=== PATIENT | male | born 1980 | race Two or more races ===

== ENCOUNTER 2025-01-23 12:00 | Emergency (ER) | payer MEDICAID, SELFPAY ==
[2025-01-23 12:13] VITALS: BP 148/100; PULSE 80; RESP 19; TEMP 36.9; O2SAT 96; BMI 29.3
--- NOTE | 2025-01-23 12:25 | XR_ITS ---
EXAMINATION: XR elbow comp LT min 3V, XR wrist comp LT min 3V ORDERING PROVIDER: Tim Oscar NP HISTORY: pain after 6 ft fall off ladder TECHNIQUE: 6 radiographs of the left elbow and wrist were obtained. COMPARISON: None. FINDINGS: Mild apex dorsal distal ulnar metaphyseal fracture with surrounding soft tissue swelling. No acute fracture or dislocation of the elbow. No elbow joint effusion. IMPRESSION: Distal ulnar metaphyseal fracture.
--- NOTE | 2025-01-23 12:25 | XR_ITS ---
Examination: CT brain head without contrast. 2-D sagittal coronal reconstructions Date and time of exam:January 23, 2025 1446 hrs. Indications: Patient fell today with injury to the head, head pain CTDI: vol (mGy):54.3 DLP: (mGycm):1973 Technique: Multiple CT axial sections of the brain have been obtained, 5 mm slice thickness. Contrast has not been administered. 2-D sagittal, coronal reconstructions have been obtained Low dose protocols were performed. One or more of the following dose reduction techniques were used; automated exposure control, adjustment of the mA and/or KV according to patient size, use of iterative reconstruction technique. Findings: No significant ventricular enlargement. Intra-axial or extra-axial hemorrhage density is not seen. No mass effect or midline shift Basal cisterns are not remarkable. Fourth ventricle is midline. Cranial vault intact. Impression: Negative for acute hemorrhage, mass effect or midline shift
--- NOTE | 2025-01-23 12:25 | XR_ITS ---
EXAMINATION: CT cervical spine wo con ORDERING PROVIDER: Tim Oscar NP HISTORY: fall off ladder TECHNIQUE: CT scanner was used in the volumetric, helical non-contrast acquisition of the cervical spine with 2-D and 3-D reformats created on a separate workstation and submitted for interpretation. Institutional dose reducing protocols were utilized. RADIATION DOSE: DLP 236 mGy-cm COMPARISON: None. FINDINGS: No acute cervical spine fracture or dislocation. There is straightening with mild reversal normal cervical lordotic curvature centered at C6. Mild degenerative disc most pronounced at C5-C6 and C7-T1. Small disc osteophytes. This amount of air posterior to C6, possibly from related degenerative disc disease. Mild uncovertebral hypertrophy most pronounced at C5-C6 and C6-C7. Basilar cervical spine facet arthrosis No abnormal thickening of the prevertebral soft tissues. There is a partially calcified 7 mm nodule in the right lung apex. This probably represents a calcifying granuloma, sequela of old granulomatous disease. There is an 8 mm focus of air posterior lateral right to the trachea, which may represent a small diverticulum. IMPRESSION: 1. No acute fracture or dislocation of the cervical spine. 2. Straightening of the normal cervical lordotic curvature with mild reversal which may be due to positioning or muscle spasm.
--- NOTE | 2025-01-23 12:29 | XR_ITS ---
EXAMINATION: XR chest 1V ORDERING PROVIDER: Tim Oscar NP HISTORY: fall off ladder TECHNIQUE: Single portable AP radiograph of the chest. COMPARISON: None. FINDINGS: Lines and Tubes: None. Lungs: No consolidation. Probable 3 mm left upper lobe calcified granuloma, likely sequela of old granulomatous disease. Pleura: No pneumothorax or pleural effusion. Right costophrenic angle clipped. Cardiomediastinal Silhouette: Normal. Soft Tissues/Bones: Normal. IMPRESSION: No acute pulmonary findings.
--- NOTE | 2025-01-23 12:29 | PD.EDADULT ---
ED General RME/HPI General Chief complaint: Fall Stated complaint: FELL OFF STEP LADDER, THINKS HE FX'D L) ARM Time Seen by Provider: 01/23/25 12:24 Arrival date/time: 01/23/25 12:00 CC: Left wrist left elbow pain HPI onset after falling off a ladder approximately 30 minutes ago patient denies LOC or LOC is not on any blood thinners has no allergies localized pain is 8 on a 10 scale. Patient denies numbness or tingling in his hand. Related Data Previous Rx's ?Medication ?Instructions ?Recorded naproxen 500 mg tablet (Naprosyn) 500 mg PO BID #30 tabs 12/20/18 tramadol 50 mg tablet (Ultram) 50 mg PO QID #20 tabs 12/20/18 meloxicam 7.5 mg tablet 7.5 mg PO QDAY #14 tabs 01/23/25 Allergies Allergy/AdvReac Type Severity Reaction Status Date / Time No Known Allergies Allergy Verified 01/23/25 12:06 Review of Systems Review of Systems Narrative Review of Systems: GEN: No fever, no chills, no weight loss EYES: No discharge, no visual changes, no pain HEENT: No ear pain, no congestion, no sore throat PULM: No shortness of breath, no cough, no congestion CV: No chest pain, no dyspnea on exertion, no palpitations GI: No nausea, no vomiting, no diarrhea, no pain, no constipation : No frequency, no urgency, no dysuria MUSC/SKEL: Left upper extremity elbow and wrist pain SKIN: No rash PSYCH: No hallucinations, no depression HEME/LYMPH: No easy bleeding or bruising tendencies NEURO: No weakness, no headache Past Medical History Social History SMOKING STATUS: Current some day smoker ED Exam Narrative Physical exam: [General: In moderate discomfort but not in any acute distress Head normocephalic, no step-offs hematoma induration ulceration or abrasions HEENT: Face: No raccoon's eyes Thacker sign facial asymmetry bogginess eyes pupils are PERRLA EOMs are intact mouth pink moist membranes uvula is midline swallow symmetrical phonation is normal no step-off in the upper or lower mandible with palpation. Nose: No rhinorrhea or otorrhea no epistaxis. All other subsystems of HEENT are within acceptable limits Neck is supple nontender nontender to palpation, full range of motion rotation flexion extension. No LAD no edema no JVD Chest equal chest rise nontender to palpation Respiratory: Clear to auscultation no wheezes crackles or rubs CV: Rate rhythm is regular no murmurs rubs or clicks Abdomen is soft nontender no masses positive bowel sounds all 4 quadrants Back: No CVA tenderness no spinous process tenderness from cervical spine thoracic and lumbar spine Skin: Intact no petechiae rash induration ulceration or crepitus Extremities: Moving all extremity against resistance cap refill less than 2 seconds neurosensory intact Neuro: Awake alert oriented x3 Glascow coma 15 no focal deficits] Course Quality Measures none Orders Category Date Time Status Saline [Insert IV] NOW Care 01/23/25 12:25 Completed Splint / Immobilizer STAT Care 01/23/25 13:[address] cervical spine wo con Stat Exams 01/23/25 12:[address] head/brain wo con Stat Exams 01/23/25 12:25 Completed XR chest 1V Stat Exams 01/23/25 12:29 Completed XR elbow comp LT min 3V Stat Exams 01/23/25 12:25 Completed XR wrist comp LT min 3V Stat Exams 01/23/25 12:25 Completed Morphine Inj Med 01/23/25 12:25 Discontinued 4 mg IVP X1 ONE Ondansetron Inj [Zofran Inj] Med 01/23/25 12:25 Discontinued 4 mg IV X1 ONE Vital Signs Vital signs: Vital Signs Temperature 98.4 F 01/23/25 12:13 Pulse Rate 80 01/23/25 12:13 Respiratory Rate 19 01/23/25 12:13 Blood Pressure 148/100 H 01/23/25 12:13 Pulse Oximetry (%) 96 01/23/25 12:13 Oxygen Delivery Method Room Air 01/23/25 12:13 [facility] Patient data External records reviewed:: [facility] previous records Clinical information provided by:: patient Social determinants that could affect healthcare access:: none Patient has the following chronic illnesses:: None How is presenting disease/condition affected by chronic disease/condition?: uneffected by Evaluation data The following diagnostics were reviewed and interpreted by me:: lab results and radiology exam(s) Lab and/or radiology exams considered but not ordered:: CT head and C-spine is interpreted by me read by radiology as negative for any acute finding X-ray of the elbow is negative x-ray of the wrist is positive for distal ulnar fracture. Interpretation Summary: Reassessment of the patient at 1600 the patient is awake alert oriented no other focal deficits as and no decline in neurologic status throughout his visit the emergency room chest x-ray is negative for any acute finding this time patient be discharged home with a wrist fracture. Medications Medications considered but not ordered:: None Medication administrations:: Medication Administration History Discontinued Medications Morphine Sulfate (Morphine Sulf Inj 10 Mg/Ml Vial) 4 mg IVP X1 ONE Stop: 01/23/25 12:26 Last Admin: 01/23/25 13:01 Dose: 4 mg Documented By: GERALDO Ondansetron HCl (Ondansetron Inj 2 Mg/Ml Inj 2 Ml) 4 mg IV X1 ONE; Protocol Stop: 01/23/25 12:26 Last Admin: 01/23/25 12:59 Dose: 4 mg Documented By: GERALDO None Consultations Consultation(s) initiated? (list below): No Diagnosis Differential Diagnosis ED Complaint MDM: Closed head injury neck fracture wrist fracture elbow fracture Most likely diagnosis given after review of the tests above:: Fall wrist fracture Admission Indicated Admission indicated?: not indicated Explain why admission is indicated or not indicated:: Stable for outpatient follow-up Admission Request Was there a request for admission?: No Disposition Plan Disposition Plan: Discharge Discharge Attestation Discharge Attestation: The patient and all family members were given an opportunity to ask questions and understood the discharge instructions. Discharge instructions specifically effects, indications for sooner follow up or return to the emergency department, and the expected course of current diagnosis. Patient condition: Stable Medical Decision Making Differential Diagnosis Differential Diagnosis: Closed head injury neck fracture wrist fracture elbow fracture Discharge Plan Plan Patient Disposition: HOME (Self Care) Patient condition on transfer: Stable Prescriptions/Referrals Prescriptions/Med Rec: New meloxicam 7.5 mg tablet 7.5 mg PO QDAY Qty: 14 0RF No Action tramadol [Ultram] 50 mg tablet 50 mg PO QID Qty: 20 0RF naproxen [Naprosyn] 500 mg tablet 500 mg PO BID Qty: 30 0RF Referrals: Emigdio Lane MD [Primary Care Provider] - In 1 week Kal Aaron MD [Physician] - In 1 week Problem List Clinical Impression: Fracture, ulna, distal, Fall Patient/Caregiver Discharge Instructions Education Materials: ED Forearm Fx Wo Redu Additional Instructions: Keep the wrist in the splint until replaced by a cast, if the splint is removed or gets wet return to the emergency room for reevaluation. Take the medication for temporary pain relief. Print Language: Honduran Stand Alone Forms: [employer] Award Info., Work/School Release, Patient Portal Info Letter PA/COMPUTER NUMERIC CONTROL SETTER Supervising Physician PA/COMPUTER NUMERIC CONTROL SETTER Supervising Physician: Tim Oscar ENP
[2025-01-23 12:54] VITALS: BP 140/90; PULSE 67; RESP 19; TEMP 37; O2SAT 96
[2025-01-23] MEDS: ONDANSETRON INJ 2 MG/ML INJ 2 ML 4 MG IV (12:59)
[2025-01-23] MEDS: MORPHINE SULF INJ 10 MG/ML VIAL 4 MG IVP (13:01)
[2025-01-23 14:18] VITALS: BP 161/100; PULSE 65; RESP 17; TEMP 36.7; O2SAT 95
[2025-01-23 15:57] VITALS: BP 149/76; PULSE 81; RESP 16; TEMP 37.2; O2SAT 94
== END 2025-01-23 16:11 | disposition home or self-care (01) ==
PROVIDERS: Emergency Provider Emergency Medicine; PCP Family Medicine
DX: S52.602A Unspecified fracture of lower end of left ulna, initial encounter for closed fracture (principal); W11.XXXA Fall on and from ladder, initial encounter
CPT/HCPCS: 29126; 70450; 71045; 72125; 73080; 73110; 96374; 96375; 99284; A4565; J2270; J2405

== ENCOUNTER → 2025-02-08 | Outpatient (CLI) | payer MEDICAID, SELFPAY ==
--- NOTE | 2025-02-08 14:48 | XR_ITS ---
Examination: Wrist, left 3 views Technique: Wrist AP, oblique, lateral 3 views Date and time of exam: February 08, 2025 1408 hours Comparison January 23, 2025 INDICATIONS: Ulnar fracture January 23, 2025 FINDINGS: Partial healing fracture distal ulna with stable and satisfactory alignment IMPRESSION: Partial healing fracture distal ulna with stable and satisfactory alignment
--- NOTE | 2025-02-08 14:48 | XR_ITS ---
Examination: Hand, left 3 views Technique: Hand AP, oblique, lateral 3 views Date and time of exam: February 08, 2025 1451 hours INDICATIONS: Acute ulnar fracture January 23, 2025 FINDINGS: Partial healing fracture distal ulna with stable and satisfactory alignment IMPRESSION: Partial healing fracture distal ulna with stable and satisfactory alignment
== END | disposition home or self-care (01) ==
LOC: CDIM 14:31
PROVIDERS: PCP Nurse Practitioner Gerontology; Referring Provider Nurse Practitioner Gerontology; Visit Provider Nurse Practitioner Gerontology
DX: S52.602A Unspecified fracture of lower end of left ulna, initial encounter for closed fracture (principal); X58.XXXA Exposure to other specified factors, initial encounter
CPT/HCPCS: 73110; 73130

== ENCOUNTER → 2025-03-13 | Outpatient (CLI) | payer MEDICAID, SELFPAY ==
--- NOTE | 2025-03-13 09:00 | XR_ITS ---
Examination: CT left hand, without contrast. 2-D sagittal reconstructions. 2-D coronal reconstructions. 3-D reconstructions. Date and time of exam:March 13, 2025 0916 hours INDICATIONS: Patient fell from a ladder January 23, 2025 with injury to the hand, hand pain CTDI: vol (mGy):4.61 DLP: (mGycm):131 Technique: Multiple 1.25 mm axial sections of the left hand without intravenous contrast have been obtained. 2-D sagittal and coronal reconstructions have been obtained. 3-D reconstructions have been obtained. Low dose protocols were performed. One or more of the following dose reduction techniques were used; automated exposure control, adjustment of the mA and/or KV according to patient size, use of iterative reconstruction technique. Findings: Partial healing fracture distal ulna with satisfactory alignment Distal radius carpal bones intact Metacarpals digits intact No foreign bodies IMPRESSION: Partial healing fracture distal ulna with satisfactory alignment
--- NOTE | 2025-03-13 09:30 | XR_ITS ---
Examination: CT left wrist, without contrast. 2-D sagittal reconstructions. 2-D coronal reconstructions. 3-D reconstructions. Date and time of exam:March 13, 2025 0916 hours INDICATIONS: Patient fell from a ladder January 23, 2025 with injury to the wrist, wrist pain CTDI: vol (mGy):4.95 DLP: (mGycm):110 Technique: Multiple 1.25 mm axial sections of the left wrist without intravenous contrast have been obtained. 2-D sagittal and coronal reconstructions have been obtained. 3-D reconstructions have been obtained. Low dose protocols were performed. One or more of the following dose reduction techniques were used; automated exposure control, adjustment of the mA and/or KV according to patient size, use of iterative reconstruction technique. Findings: Subacute fracture distal ulna with partial healing, bony callus formation noted No significant offset Distal radius intact Navicular lunate triquetrum and remaining carpal bones intact with no dislocation IMPRESSION: Subacute healing fracture distal ulna with satisfactory alignment
== END | disposition home or self-care (01) ==
PROVIDERS: PCP Family Medicine; Referring Provider Nurse Practitioner Family; Visit Provider Nurse Practitioner Family
DX: S52.602A Unspecified fracture of lower end of left ulna, initial encounter for closed fracture (principal); W11.XXXA Fall on and from ladder, initial encounter
CPT/HCPCS: 73200